=== PATIENT | female | born 1985 | race African-American/Black ===

== ENCOUNTER 2025-07-24 11:40 | Emergency (ER) | payer SELFPAY ==
[~2025-07-24] VITALS: Ht 170.2 cm; Wt 110.0 kg
[2025-07-24 11:45] VITALS: TEMP 37.1; O2SAT 100
[2025-07-24] MEDS ORDERED: LIDOCAINE HCL 1% 20ML VIAL INFIL ONE (12:15)
[2025-07-24] MEDS: IBUPROFEN 600MG TABLET PO ONE (12:28)
[2025-07-24] MEDS: HYDROCODONE/ACETAMINOPHEN 5/325MG TABLET PO ONE (12:28)
[2025-07-24] MEDS: TETANUS, DIPHTHERIA, PERTUSSIS VAC/PF 0.5ML (>10YR OLD) IM ONE (12:29)
[2025-07-24 14:00] VITALS: BP 136/88; PULSE 86; RESP 18; O2SAT 100
[2025-07-24] MEDS ORDERED: ACET-2708 MT (15:02)
[2025-07-24] MEDS ORDERED: IBUP-2029 PO (15:02)
[2025-07-24] MEDS ORDERED: CEPH500C2 MT (15:02)
== END 2025-07-24 15:25 | disposition home or self-care (01) ==
LOC: ER 11:53
DX: S62.633A Displaced fracture of distal phalanx of left middle finger, initial encounter for closed fracture (principal); S61.213A Laceration without foreign body of left middle finger without damage to nail, initial encounter; W22.09XA Striking against other stationary object, initial encounter; Y93.89 Activity, other specified; Y92.89 Other specified places as the place of occurrence of the external cause; Y99.8 Other external cause status
CPT/HCPCS: 73130; 90715; 12001; 90471; 99283; J2003; Z7610